=== PATIENT | female | born 1970 | race Caucasian/White ===

== ENCOUNTER 2021-02-19 10:49 | Inpatient (IN) | payer MEDICAID, OTHER ==
[2021-02-19] VITALS (13 sets, daily range): BP systolic 91–135; BP diastolic 39–71
[~2021-02-19] VITALS: Ht 167.6 cm; Wt 87.2 kg
[~2021-02-19 10:49] MED LIST: AMLO-186 PO; CA C1TAB29 PO; CITA40TA12 PO; FAMO-63 PO; LEVO125T5 PO; LOSA100T14 PO
[2021-02-19] MEDS ORDERED: ONDANSETRON PF 4 MG/2 ML VIAL. ONE (11:21)
[2021-02-19] MEDS ORDERED: ONDANSETRON PF 4 MG/2 ML VIAL. IVP ONE (11:30)
[2021-02-19] MEDS ORDERED: ASPI-630 PO (11:38)
[2021-02-19] MEDS ORDERED: ATOR80TA72 PO (11:38)
[2021-02-19] MEDS ORDERED: BUSP10TA PO (11:39)
[2021-02-19] MEDS ORDERED: FLUO40CA2 PO (11:39)
[2021-02-19] MEDS ORDERED: DOCU-109 PO (11:39)
[2021-02-19] MEDS ORDERED: QUET50TA5 PO (11:39)
[2021-02-19] MEDS ORDERED: TRAZ150T49 PO (11:39)
[2021-02-19] MEDS ORDERED: QUET200T4 PO (11:39)
[2021-02-19] MEDS ORDERED: IODIXANOL 320 MG/ML 100 ML VIAL. ONE (12:20)
[2021-02-19] MEDS ORDERED: LIDOCAINE 1% PF 2 ML VIAL. ONE (12:20)
[2021-02-19] MEDS ORDERED: NITROGLYCERIN 200 MCG/2 ML SYRINGE FOR CATH/VASC LAB. ONE (12:37)
[2021-02-19] MEDS ORDERED: MIDAZOLAM HCL/PF 2 MG/2 ML VIAL. ONE (12:37)
[2021-02-19] MEDS ORDERED: HEPARIN for IV BOLUS 10,000 UNIT/10 ML VIAL. ONE (12:37)
[2021-02-19] MEDS ORDERED: fentaNYL PF VIAL 100 MCG/2 ML VIAL ONE (12:37)
[2021-02-19] MEDS ORDERED: VERAPAMIL 5 MG/2 ML VIAL. ONE (12:37)
[2021-02-19] MEDS ORDERED: IODIXANOL 320 MG/ML 100 ML VIAL. IART ONE (14:15)
[2021-02-19] MEDS ORDERED: HEPARIN for IV BOLUS 10,000 UNIT/10 ML VIAL. IART ONE (14:15)
[2021-02-19] MEDS ORDERED: LIDOCAINE 1% PF 2 ML VIAL. INJ ONE (14:15)
[2021-02-19] MEDS ORDERED: VERAPAMIL 5 MG/2 ML VIAL. IART ONE (14:15)
[2021-02-19] MEDS ORDERED: fentaNYL PF VIAL 100 MCG/2 ML VIAL IV ONE (14:15)
[2021-02-19] MEDS ORDERED: MIDAZOLAM HCL/PF 2 MG/2 ML VIAL. IV ONE (14:15)
[2021-02-19] MEDS ORDERED: NITROGLYCERIN 200 MCG/2 ML SYRINGE FOR CATH/VASC LAB. IART ONE (14:15)
--- NOTE | 2021-02-19 18:47 | NUR ---
Per Elodia, 16CC of air was placed in TR band. This RN was able to remove 6CC of air, and the TR has no more remaining. Pulse present, No bleeding at this time.
[2021-02-19] MEDS: DOCUSATE SODIUM 100 MG CAPSULE. PO SCH (20:54)
[2021-02-19] MEDS: traZODone 50 MG TABLET. PO SCH (20:54)
[2021-02-19] MEDS: clonazePAM 0.5 MG TABLET PO PRN (20:54)
[2021-02-19] MEDS: ATORVASTATIN CALCIUM 40 MG TABLET. PO SCH (20:54)
[2021-02-19] MEDS: busPIRone 10 MG TABLET. PO SCH (20:54)
[2021-02-19] MEDS: QUEtiapine 100 MG TABLET. PO SCH (20:54)
[2021-02-20] VITALS (9 sets, daily range): BP systolic 100–125; BP diastolic 51–74
[2021-02-20 04:56] LABS: HEMATOCRIT 39.9 % (36.0-47.0); HEMOGLOBIN 13.3 g/dL (12.0-15.5); RED BLOOD COUNT 4.42 x10^6/uL (3.50-5.40); RED CELL DISTRIBUTION WIDTH 15.2 % (11.5-14.5)
[2021-02-20 05:30] LABS: ALBUMIN 3.3 g/dL (3.4-5.0); ALBUMIN/GLOBULIN RATIO 0.9 (1.0-1.7); CALCIUM 8.9 mg/dL (8.5-10.1); CREATININE 1.1 mg/dL (0.6-1.0); GFR 52.4; POTASSIUM 3.9 mmol/L (3.5-5.1); TOTAL BILIRUBIN 0.8 mg/dL (0.2-1.0)
[2021-02-20 05:32] LABS: CHOLESTEROL/HDL RATIO 2.5
[2021-02-20] MEDS: busPIRone 10 MG TABLET. PO SCH ×2 (08:44→21:01)
[2021-02-20] MEDS: DOCUSATE SODIUM 100 MG CAPSULE. PO SCH ×2 (08:44→21:01)
[2021-02-20] MEDS: ASPIRIN CHEWABLE 81 MG TABLET. PO SCH (08:44)
[2021-02-20] MEDS: FLUoxetine HCL 20 MG CAPSULE PO SCH (08:44)
[2021-02-20] MEDS: clonazePAM 0.5 MG TABLET PO PRN ×2 (11:19→21:23)
[2021-02-20] MEDS: ONDANSETRON PF 4 MG/2 ML VIAL. IVP PRN (11:20)
[2021-02-20] MEDS: oxyCODONE IR 5 MG TABLET PO PRN ×2 (11:20→21:01)
--- NOTE | 2021-02-20 11:32 | PN ---
DATE: 02/20/2021 SUBJECTIVE: The patient was transferred yesterday from where she was admitted with chest pain. She underwent cardiac catheterization and the opening of her stent to her left anterior descending artery. However, when I saw her this morning, she continued to complain of chest pain, shortness of breath, feeling dizzy and also she feels lightheaded. PHYSICAL EXAMINATION: GENERAL: When I examined her, she was resting slightly propped up in bed, in no apparent respiratory distress. She was pale, but not jaundiced or cyanosed. No thyromegaly. No jugular venous distention. No lower limb edema. VITAL SIGNS: Her heart rate was 96, blood pressure was 125/65, temperature was 98.2, respiratory rate was 18 and oxygen saturation was 98% on 2 liters of oxygen. HEAD, EYES, EARS, NOSE AND THROAT: Normocephalic, atraumatic. NECK: Supple. HEART: Showed normal first and second heart sounds. No gallop, rub or murmur. CHEST: Clear to auscultation. No crepitation or rhonchi. ABDOMEN: Distended, soft, nontender. NEUROLOGIC: She is awake, alert, seemed to be anxious, but without any obvious lateralizing sign. LABORATORY DATA: This morning showed a serum sodium 141, potassium 3.9, chloride 104, bicarbonate 29, anion gap of 8, BUN 8, creatinine was 1.1. Estimated GFR was 52 mL per minute. Her glucose was 80. Calcium was 8.9. Total bilirubin, AST, ALT normal; alkaline phosphatase slightly elevated. Total protein 7, albumin 3.3. Her serum triglycerides 73, total cholesterol 145, LDL was 71, VLDL was 15, HDL was 86 and the ratio was 2.5. ASSESSMENT: This is a 50-year-old female patient with known history of coronary artery disease with stent deployment about 10 years ago to the left anterior descending that apparently was stenosed and was reopened. She has also history of hypertension, hyperlipidemia. This morning, the patient continued to be complaining of chest pain, shortness of breath. Actually also she desaturates and complains of dizziness. PLAN: I will check her orthostatics. I also started her on Zofran and oxycodone for pain medication. We will consult the Cardiology to see her again and also get the 6-minute walk as well as physical and occupational therapy. ONEL DR: Kristina TID: [id number]
--- NOTE | 2021-02-20 13:11 | NUR ---
SS following for discharge planning. SS reviewed pt chart and discussed with pt RN. Pt is from home and is currently requiring oxygen at two liters nasal canula. Pt had heart cath on 02/19/2021. Cardiology consulted. Discharge plan is currently to home when medically ready for discharge. SS will continue to follow for discharge planning.
--- NOTE | 2021-02-20 13:16 | HP ---
ADMIT DATE: 02/19/2021 HISTORY OF PRESENT ILLNESS: The patient is a 50-year-old female patient who was seen at the Emergency Room of [facility] with a complaint of chest pain, started the night before admission while she was watching TV. She reports it was not bad at that time and nothing known to have made it better or worse. She was able to sleep overnight and when she woke up in the morning, she felt it with increasing severity. It went on throughout the entirety of the day until she finally got concerned and called EMS for transfer to [facility] Emergency Room. She describes the pain as a pressure, substernal with radiation to the left shoulder. States it feels like pressure versus pain and described it as someone sitting on me. Admits, she has significant cardiac history. She takes 1 baby aspirin daily in addition to high intensity statins. She is followed as an outpatient in [facility] Cardiology team. She has history of heart attack with 1 stent to her left anterior descending placed 9 years ago and is concerned because pressure today on the day of admission feels like similar to her previous history, has not had any significant provocative cardiac testing or intervention since the stent was placed 9 years ago. The patient is a former smoker, stopped last March. Otherwise, denies any alcohol or recreational drug use. She has been vaccinated against COVID-19, only other associated symptoms include diarrhea with looser stools than normal first experienced before she arrives to the Emergency Room. Denied any fever, recent travel or sick contact. She stated she has been homebound and fearful of getting COVID-19 in the community. She was extensively investigated in the Emergency Room and has had an EKG, which showed that she was in sinus rhythm at her heart rate of 84 beats per minute, unremarkable interval left axis deviation with no STEMI. Her chest x-ray showed no focal airspace consolidation or edema. CT scan of the chest with contrast showed that the visualized portion of the thyroid is unremarkable. No enlarged mediastinal lymph nodes are identified. Heart size is normal. No pericardial effusion. Thoracic aorta is normal in size and course and caliber. 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 No pulmonary embolus identified within the main lobar or segmental pulmonary arteries. Airways are patent braeden opacities that the dependent portion of the lungs likely represents atelectasis, no pleural effusion or thickening. Visualized upper abdomen is unremarkable. She has had 3 sets of cardiac enzymes showed troponin to be less than 0.017. However, the patient was seen by cash surrender calculator and it was felt that the patient's chest pain is consistent with myocardial ischemia and a decision was made to transfer her to [facility] for cardiac catheterization. PAST MEDICAL HISTORY: Significant for hypertension; hyperlipidemia; coronary artery disease, status post stent deployment about 9 years ago. She has also gastroesophageal reflux disease, anxiety and depression. PAST SURGICAL HISTORY: Significant for cholecystectomy, left heart catheterization with stent deployment. FAMILY HISTORY: Positive for diabetes, heart disease and hypertension. SOCIAL HISTORY: She lives with her family. She quit smoking about a year ago. Does not drink alcohol or recreational drugs. REVIEW OF SYSTEMS: As per history of present illness. MEDICATIONS: She is currently on the following medications: She is on aspirin 81 mg once a day, duloxetine 80 mg once a day and trazodone 150 mg at bedtime. She is on quetiapine fumarate 50 mg twice a day, quetiapine fumarate 200 mg at bedtime, buspirone 20 mg twice a day, docusate sodium 100 mg daily, Protonix 40 mg once a day, atorvastatin 80 mg at bedtime. PHYSICAL EXAMINATION: GENERAL: On arrival to the Emergency Room, the patient looked well and was clearly in no apparent respiratory distress. There was no pallor, jaundice, cyanosis or thyromegaly. No jugular venous distention. No limb edema. VITAL SIGNS: Her heart rate was 72, blood pressure 110/72, temperature was 97.8, respiratory rate was 16 and oxygen saturation was 97%. HEAD, EYES, EARS, NOSE, AND THROAT: Showed normocephalic, atraumatic. NECK: Supple. HEART: Showed normal first and second heart sounds, no gallop, rub or murmur. CHEST: Clear to auscultation. No crepitation or rhonchi. ABDOMEN: Distended, soft, nontender. NEUROLOGIC: She is grossly intact. LABORATORY WORK: Done prior to arrival to the hospital and showed a white cell count of 6400, hemoglobin 13.6, hematocrit 40, MCV 91, and platelet count of 171,000 with normal manual differential. Serum sodium was 138, potassium 4.2, chloride 103, bicarbonate 26, anion gap of 9, BUN 16, creatinine 1.1. Estimated GFR was 52 mL per minute. Her glucose was 92.7, calcium was 9.4. Total bilirubin, AST, ALT were normal. Alkaline phosphatase slightly elevated at 238. CK was 110, beta natriuretic peptide was only 53. Total protein was 7.4, albumin was 3.8. She has 3 sets of cardiac enzymes that were all less than 0.017. ASSESSMENT: 1. Coronary artery disease, status post stent deployment. 2. Chest pain. 3. Hypertension. 4. Hyperlipidemia. PLAN: The patient was admitted to [facility] for cardiac catheterization to consult the Cardiology team for cardiac catheterization as recommended by the cash surrender calculator. BALWINDER DR: Kristina TID: [id number]
--- NOTE | 2021-02-20 13:20 | PDOC ---
CARDIO Progress Notes Date and Time Date of Service 02/20/2021 Time of Evaluation 1300 Subjective Subjective: No Chest Pain, No Palpitations Vitals Vitals Vital Signs Date Time Temp Pulse Resp B/P (MAP) Pulse Ox O2 Delivery O2 Flow Rate FiO2 02/20/21 11:50 18 Nasal Cannula 2.0 02/20/21 11:20 93 02/20/21 10:24 98.2 96 125/65 (85) 98.2 Weight Weight [ ] Input and Output Intake and Output Intake and Output 02/20/21 07:00 Intake Total 750 ml Balance 750 ml Intake Oral 750 ml Laboratory Labs Laboratory Tests Test 02/20/21 04:30 White Blood Count 5.0 x10^3/uL (4.0-11.0) Red Blood Count 4.42 x10^6/uL (3.50-5.40) Hemoglobin 13.3 g/dL (12.0-15.5) Hematocrit 39.9 % (36.0-47.0) Mean Corpuscular Volume 90 fL (79-100) Mean Corpuscular Hemoglobin 30 pg (25-35) Mean Corpuscular Hemoglobin Concent 33 g/dL (31-37) Red Cell Distribution Width 15.2 % (11.5-14.5) Platelet Count 166 x10^3/uL (140-400) Sodium Level 141 mmol/L (136-145) Potassium Level 3.9 mmol/L (3.5-5.1) Chloride Level 104 mmol/L (98-107) Carbon Dioxide Level 29 mmol/L (21-32) Anion Gap 8 (6-14) Blood Urea Nitrogen 8 mg/dL (7-20) Creatinine 1.1 mg/dL (0.6-1.0) Estimated GFR (Cockcroft-Gault) 52.4 BUN/Creatinine Ratio 7 (6-20) Glucose Level 80 mg/dL (70-99) Calcium Level 8.9 mg/dL (8.5-10.1) Total Bilirubin 0.8 mg/dL (0.2-1.0) Aspartate Amino Transf (AST/SGOT) 22 U/L (15-37) Alanine Aminotransferase (ALT/SGPT) 35 U/L (14-59) Alkaline Phosphatase 206 U/L (46-116) Troponin I Quantitative < 0.017 ng/mL (0.000-0.055) Total Protein 7.0 g/dL (6.4-8.2) Albumin 3.3 g/dL (3.4-5.0) Albumin/Globulin Ratio 0.9 (1.0-1.7) Triglycerides Level 73 mg/dL (0-150) Cholesterol Level 145 mg/dL (0-200) LDL Cholesterol, Calculated 71 mg/dL (0-100) VLDL Cholesterol, Calculated 15 mg/dL (0-40) Non-HDL Cholesterol Calculated 86 mg/dL (0-129) HDL Cholesterol 59 mg/dL (40-60) Cholesterol/HDL Ratio 2.5 Physical Exam HEENT: Neck Supple W Full Motion Chest: Symmetric LUNGS: Clear to Auscultation Heart: RRR (SR) Abdomen: Soft N/T Extremities: No Edema, No Calf Tenderness Neurology: alert, oriented, follow commands Assessment Assessment 1. Chest pain: possibly from anxiety. LHC revealed no significant lesion or intervention 2. CAD s/p PCI/stent in 2017. Follows with [facility] cardiology, Dr. Tristan. 3. Hypertension; controlled 4. Hyperlipidemia; statin 5. Anxiety, depression 6. Hypoxia; prior CTA with no significant changes. Recommendation 1. Continue secondary prevention measures 2. Continues to need O2. PCXR. If no LV gram then will consider TTE. 6 min walk 3. Supportive care Justicifation of Admission Dx: Justifications for Admission: Justification of Admission Dx: No CORTEZ DAVIES APRN Feb 20, 2021 13:20
--- NOTE | 2021-02-20 13:54 | RAD ---
EXAM: XR CHEST 1V 02/20/2021 11:40 AM CLINICAL INDICATION: Shortness of breath COMPARISON: None TECHNIQUE: AP upright view of the chest FINDINGS: The heart is normal in size. Lungs are hyperexpanded. There is no consolidation, pleural e ffusion, or pneumothorax. No acute osseous abnormality. IMPRESSION: No acute cardiopulmonary abnormality. Electronically signed by: Noemy Elliott MD (02/20/2021 1:52 PM) [id number]
[2021-02-20] MEDS: QUEtiapine 25 MG TABLET. PO SCH (14:52)
--- NOTE | 2021-02-20 17:04 | CARD ---
MR#: [id number] Date of Study: 02/19/2021 Ordering Physician: SANTA MCCLAIN, Referring Physician: SANTA MCCLAIN, Tech: RT Shania(R) APPROVED REPORT Technologist: Alise Ward RT(R) Nurse: Bharti Elizalde RN Procedure(s) performed: MODERATE SEDATION TIME: 45 MINUTES FLUORO TIME: 5.1 MIN DOSE: 29.1 GYCM2 CONTRAST: 65CC VISI LHC, Coronary angiography [facility] Clinical Frailty Scale [facility] Clinical Frailty Scale: Moderately Frail Heart Failure Heart Failure: No CASE TECHNIQUE IV conscious sedation was used throughout procedure with appropriate monitoring and was performed in the presence of a registered nurse who was an independent trained observer other than the physician p erforming the procedure. During this case, Fluoroscopy and low osmolar contrast were used for imaging . Specimen(s) Removed: N/A Estimated Blood loss: 15 cc's. PROCEDURE NARRATIVE Clinical information: 50-year-old woman presents to the hospital in the setting of unstable angina and a prior known histor y of coronary artery disease. Informed consent: Written informed consent was obtained from the patient after adequate discussion of the risks and ruiz efits of the procedure. Procedure details: ACCESS: The right wrist was prepped and draped in usual sterile fashion. Under 1% lidocaine local anesthesia a 6 Russian Terumo sheath was placed in the right radial artery via the Seldinger technique via ultra sound guidance. DIAGNOSTIC ANGIOGRAPHY: Right and left coronary arteries were engaged with a 6 Russian JR4 and JL 3.5 catheters. Diagnostic a ngiography in multiple views were obtained. Next, a 6 Russian JR4 catheter was placed in the left jair tricle and a LVEDP was measured. A pullback was performed. All catheters were exchanged over J-tip guidewire. FINDINGS: ======= Aorta: 110/80 LVEDP: 15 mmHg Left ventriculogram: Deferred Coronary angiography: LM: Large caliber vessel with normal angiographic appearance LAD: Moderate caliber vessel with a proximal 40-50% stenosis. The mid to distal LAD is diminutive in nature. D1: Small caliber vessel with normal angiographic appearance LCX: Moderate caliber non-dominant vessel with a patent mid stent. OM1: Small caliber vessel with normal angiographic appearance RCA: Large caliber dominant vessel with a proximal to mid 30% stenosis RPDA: Moderate caliber vessel with mild luminal irregularities. The RPDA and RPL extend to the apex. CLOSURE: At case completion the right radial sheath was removed and a Terumo radial band was applied with 11 m L of air. Hemostasis was achieved. COMPLICATIONS: No acute complications noted Conclusion 1. Normal left-sided filling pressures 2. Two-vessel coronary artery disease. 3. Patent stent in the left circumflex. Recommendations Aggressive Medical Therapy Signed by : Santa Mcclain, Electronically Approved : 02/20/2021 17:03:45
--- NOTE | 2021-02-20 17:20 | CARD ---
MR#: [id number] Date of Study: 02/20/2021 Ordering Physician: CORTEZ DAVIES, Referring Physician: CORTEZ DAVIES Tech: Ramana Tamayo [facility] APPROVED REPORT EXAM: Two-dimensional and M-mode echocardiogram with Doppler and color Doppler. Other Information Quality : AverageHR: 83bpm Rhythm : NSR INDICATION CAD Chest Pain RISK FACTORS Hypertension Hyperlipidemia 2D DIMENSIONS Left Atrium(2D)2.5 (1.6-4.0cm)IVSd0.9 (0.7-1.1cm) Aortic Root(2D)2.9 (2.0-3.7cm)LVDd3.6 (3.9-5.9cm) LVOT Diameter1.8 (1.8-2.4cm)PWd0.9 (0.7-1.1cm) LVDs2.4 (2.5-4.0cm)FS (%) 32.4 % SV33.3 mlLVEF(%)61.7 (>50%) Aortic Valve AoV Peak Tyler.140.5cm/sAoV VTI24.4cm AO Peak GR.7.9mmHgLVOT Peak Tyler.103.4cm/s AO Mean GR.4mmHgAVA (VMAX)1.95cm2 Mitral Valve MV E Hmiozfow94.0cm/sMV E Peak Gr.4mmHg MV DECEL [id number] A Zcsdycbs67.7cm/s MV E Mean Gr.2mmHgE/A Ratio0.9 Pulmonary Valve PV Peak Adkcgduj064.3cm/s Tricuspid Valve TR P. Sjsklvlz828zw/sTR Peak Gr.20mmHg Pulmonary Vein S1 Zwwgwfdk17.3cm/sD2 Ihsfyuce76.2cm/s LEFT VENTRICLE The left ventricle is normal size. There is normal left ventricular wall thickness. The left ventricu lar systolic function is normal and the ejection fraction is within normal range. EF 55% There is nor mal LV segmental wall motion. Transmitral Doppler flow pattern is Grade I-abnormal relaxation pattern . No left ventricle thrombus noted on this study. There is no ventricular septal defect visualized. T here is no left ventricular aneurysm. There is no mass noted in the left ventricle. RIGHT VENTRICLE The right ventricle is normal size. There is normal right ventricular wall thickness. The right ventr icular systolic function is normal. ATRIA The left atrium size is normal. The right atrium size is normal. The interatrial septum is intact wit h no evidence for an atrial septal defect or patent foramen ovale as noted on 2-D or Doppler imaging. AORTIC VALVE The aortic valve is trileaflet. Doppler and Color Flow revealed no significant aortic regurgitation. There is no significant aortic valvular stenosis. There is no aortic valvular vegetation. MITRAL VALVE The mitral valve is normal in structure and function. There is no evidence of mitral valve prolapse. There is no mitral valve stenosis. Doppler and Color Flow revealed no mitral valve regurgitation note d. TRICUSPID VALVE The tricuspid valve is normal in structure and function. Doppler and Color Flow revealed trace tricus pid regurgitation. There is no tricuspid valve prolapse or vegetation. There is no tricuspid valve st enosis. PULMONIC VALVE Doppler and Color Flow revealed trivial pulmonic regurgitation There is no pulmonic valvular stenosis . GREAT VESSELS The aortic root is normal in size. The ascending aorta is normal in size. The IVC is normal in size a nd collapses >50% with inspiration. PERICARDIAL EFFUSION There is no pleural effusion. There is no evidence of significant pericardial effusion. Critical Notification Critical Value: No <Conclusion> The left ventricular systolic function is normal and the ejection fraction is within normal range. EF 55% There is normal LV segmental wall motion. Signed by : Rustam Mcclain, Electronically Approved : 02/20/2021 17:19:53
[2021-02-20] MEDS: QUEtiapine 100 MG TABLET. PO SCH (21:00)
[2021-02-20] MEDS: traZODone 50 MG TABLET. PO SCH (21:00)
[2021-02-20] MEDS: ATORVASTATIN CALCIUM 40 MG TABLET. PO SCH (21:23)
[2021-02-21] VITALS (7 sets, daily range): BP systolic 84–113; BP diastolic 43–64
[2021-02-21] MEDS: ASPIRIN CHEWABLE 81 MG TABLET. PO SCH (08:56)
[2021-02-21] MEDS: busPIRone 10 MG TABLET. PO SCH ×2 (08:56→19:26)
[2021-02-21] MEDS: QUEtiapine 25 MG TABLET. PO SCH ×2 (08:57→14:45)
[2021-02-21] MEDS: clonazePAM 0.5 MG TABLET PO PRN ×2 (08:57→19:26)
[2021-02-21] MEDS: FLUoxetine HCL 20 MG CAPSULE PO SCH (08:57)
[2021-02-21] MEDS: oxyCODONE IR 5 MG TABLET PO PRN ×2 (08:57→19:27)
[2021-02-21] MEDS: DOCUSATE SODIUM 100 MG CAPSULE. PO SCH ×2 (09:00→21:00)
--- NOTE | 2021-02-21 12:42 | PN ---
DATE: 02/21/2021 SUBJECTIVE: The patient is resting slightly propped up in her recliner, continued to complain of being weak and fatigued and short of breath. She underwent cardiac catheterization, which basically showed that she has normal left ventricular filling pressure, 2-vessel coronary artery disease, patent stent to the left circumflex. While at [facility], she had had a chest x-ray which basically showed no focal airspace consolidation or edema and her CT angio of the chest showed that the heart size is normal with no pericardial effusion, thoracic aorta is normal size, normal course and caliber. There is an aberrant right subclavian artery with a retroesophageal course, normal pulmonary embolism identified within the main lobar or segmental pulmonary arteries. The airways are patent. Strandy opacities in the dependent portion of the lungs, likely representing atelectasis. No suspicious lung nodules identified. No pleural effusion or thickening. Visualized upper abdomen is unremarkable. No suspicious osseous lesions or acute fracture. PHYSICAL EXAMINATION: GENERAL: When I examined her today, she was resting slightly propped up in bed, in no apparent distress. There was no pallor, jaundice, cyanosis or thyromegaly. No jugular venous distention. No lower limb edema. VITAL SIGNS: Her heart rate was 86, blood pressure was 113/64, temperature was 96.8, respiratory rate was 16 and oxygen saturation was 92% on 2 liters of oxygen. HEAD, EYES, EARS, NOSE, AND THROAT: Normocephalic, atraumatic. NECK: Supple. HEART: Showed normal first and second heart sounds, no gallop or murmur. CHEST: Shows central trachea, equal bilateral chest expansion, air entry, vesicular breath sounds. I could not really appreciate any crepitation or rhonchi. ABDOMEN: Distended, soft, nontender. NEUROLOGIC: She is awake, alert, but without any obvious lateralizing sign. LABORATORY DATA: Her lab work as of yesterday showed a normal white cell count of 5000, hemoglobin 13.3, hematocrit 39.9, MCV 90 and platelet count of 166,000. Her chemistry showed a serum sodium 141, potassium 3.9, chloride 104, bicarbonate 29, anion gap of 8, BUN 8, creatinine 1.1. Estimated GFR was 52 mL per minute. Her glucose was 80. Calcium was 8.9. Total bilirubin, AST, ALT were normal. Alkaline phosphatase slightly elevated. Her total protein 7, albumin was 3.3. Serum triglyceride was 73, cholesterol 145, LDL cholesterol 71, VLDL was 15, HDL cholesterol was 59, ratio was 2.5. ASSESSMENT: 1. Chest pain with no obvious reason for that. Her CT angio of the chest was unremarkable and left heart catheterization revealed no significant lesion and/or required intervention. 2. Coronary artery disease status post percutaneous coronary intervention with stent deployment in 2017. She normally follows with her public health nutritionist at [facility]. 3. Hypertension, seems to be well controlled. 4. Hyperlipidemia, on statin. 5. Anxiety and depression. 6. Hypoxemia; however, her CT angio of the chest was unremarkable. PLAN: To continue with oxygen supplementation. She was seen by the physical therapist and apparently they recommended group home facility something that obviously cannot be arranged over the weekend, so we will wait for Tuesday before we can look into this. COREY DR: Kristina TID: [id number]
[2021-02-21] MEDS: ENOXAPARIN 40 MG/0.4 ML SYRINGE. SQ SCH (14:45)
--- NOTE | 2021-02-21 15:37 | PDOC ---
PROGRESS NOTES Date of Service DATE: 02/21/21 TIME: 15:35 Subjective Subjective Patient seen and examined Objective Objective Vital Signs Date Time Temp Pulse Resp B/P (MAP) Pulse Ox O2 Delivery O2 Flow Rate FiO2 02/21/21 15:00 97.6 83 16 103/52 (69) 95 Nasal Cannula 2.0 97.6 Intake and Output 02/21/21 07:00 Intake Total 1870 ml Balance 1870 ml Intake Oral 1870 ml # Voids 2 Physical Exam Abdomen: Normal bowel sounds Heart: Regular rate General: mild distress Lungs: Other (Minimally decreased breath sounds) Assessment Assessment Chest pain: Significantly improved today. Patient heart catheterization showed no significant lesions and required no interventions. Echocardiogram shows intact LV systolic function. We will continue on present treatment. CAD s/p PCI/stent in 2017. Follows with [facility] cardiology, Dr. Tristan. Hypertension; controlled Hyperlipidemia; statin Anxiety, depression. Appears improved today. Hypoxia; prior CTA with no significant changes. Comment Review of Relevant I have reviewed the following items missy (where applicable) has been applied. Labs Laboratory Tests Test 02/20/21 04:30 White Blood Count 5.0 x10^3/uL (4.0-11.0) Red Blood Count 4.42 x10^6/uL (3.50-5.40) Hemoglobin 13.3 g/dL (12.0-15.5) Hematocrit 39.9 % (36.0-47.0) Mean Corpuscular Volume 90 fL (79-100) Mean Corpuscular Hemoglobin 30 pg (25-35) Mean Corpuscular Hemoglobin Concent 33 g/dL (31-37) Red Cell Distribution Width 15.2 % (11.5-14.5) Platelet Count 166 x10^3/uL (140-400) Sodium Level 141 mmol/L (136-145) Potassium Level 3.9 mmol/L (3.5-5.1) Chloride Level 104 mmol/L (98-107) Carbon Dioxide Level 29 mmol/L (21-32) Anion Gap 8 (6-14) Blood Urea Nitrogen 8 mg/dL (7-20) Creatinine 1.1 mg/dL (0.6-1.0) Estimated GFR (Cockcroft-Gault) 52.4 BUN/Creatinine Ratio 7 (6-20) Glucose Level 80 mg/dL (70-99) Calcium Level 8.9 mg/dL (8.5-10.1) Total Bilirubin 0.8 mg/dL (0.2-1.0) Aspartate Amino Transf (AST/SGOT) 22 U/L (15-37) Alanine Aminotransferase (ALT/SGPT) 35 U/L (14-59) Alkaline Phosphatase 206 U/L (46-116) Troponin I Quantitative < 0.017 ng/mL (0.000-0.055) Total Protein 7.0 g/dL (6.4-8.2) Albumin 3.3 g/dL (3.4-5.0) Albumin/Globulin Ratio 0.9 (1.0-1.7) Triglycerides Level 73 mg/dL (0-150) Cholesterol Level 145 mg/dL (0-200) LDL Cholesterol, Calculated 71 mg/dL (0-100) VLDL Cholesterol, Calculated 15 mg/dL (0-40) Non-HDL Cholesterol Calculated 86 mg/dL (0-129) HDL Cholesterol 59 mg/dL (40-60) Cholesterol/HDL Ratio 2.5 Medications Current Medications Ondansetron HCl (Zofran) 4 mg 1X ONCE IVP ; Start 02/19/21 at 11:30; Stop 02/19/21 at 11:31; Status DC Ondansetron HCl (Zofran) 4 mg STK-MED ONCE .ROUTE ; Start 02/19/21 at 11:21; Stop 02/19/21 at 11:21; Status DC Lidocaine HCl (Xylocaine-Mpf 1% 2ml Vial) 2 ml STK-MED ONCE .ROUTE ; Start 02/19/21 at 12:20; Stop 02/19/21 at 12:20; Status DC Iodixanol (Visipaque 320) 100 ml STK-MED ONCE .ROUTE ; Start 02/19/21 at 12:20; Stop 02/19/21 at 12:20; Status DC Heparin Sodium/ Sodium Chloride 1,000 ml @ As Directed STK-MED ONCE .ROUTE ; Start 02/19/21 at 12:20; Stop 02/19/21 at 12:20; Status DC Fentanyl Citrate (Fentanyl 2ml Vial) 100 mcg STK-MED ONCE .ROUTE ; Start 02/19/21 at 12:37; Stop 02/19/21 at 12:37; Status DC Midazolam HCl (Versed) 2 mg STK-MED ONCE .ROUTE ; Start 02/19/21 at 12:37; Stop 02/19/21 at 12:37; Status DC Heparin Sodium (Porcine) (Heparin Sodium) 10,000 unit STK-MED ONCE .ROUTE ; Start 02/19/21 at 12:37; Stop 02/19/21 at 12:37; Status DC Verapamil HCl (Verapamil) 5 mg STK-MED ONCE .ROUTE ; Start 02/19/21 at 12:37; Stop 02/19/21 at 12:37; Status DC Nitroglycerin (Nitroglycerin) 200 mcg STK-MED ONCE .ROUTE ; Start 02/19/21 at 12:37; Stop 02/19/21 at 12:37; Status DC Nitroglycerin (Nitroglycerin) 200 mcg 1X ONCE IART Last administered on 02/19/21at 14:14; Start 02/19/21 at 14:15; Stop 02/19/21 at 14:16; Status DC Verapamil HCl (Verapamil) 2.5 mg 1X ONCE IART Last administered on 02/19/21at 14:14; Start 02/19/21 at 14:15; Stop 02/19/21 at 14:16; Status DC Heparin Sodium (Porcine) (Heparin Sodium) 2,500 unit 1X ONCE IART Last administered on 02/19/21at 14:15; Start 02/19/21 at 14:15; Stop 02/19/21 at 14:16; Status DC Heparin Sodium/ Sodium Chloride (HEPARIN for ARTERIAL LINE FLUSH) 1,000 unit 1X ONCE IART Last administered on 02/19/21at 14:13; Start 02/19/21 at 14:15; Stop 02/19/21 at 14:16; Status DC Midazolam HCl (Versed) 2 mg 1X ONCE IV Last administered on 02/19/21at 14:14; Start 02/19/21 at 14:15; Stop 02/19/21 at 14:16; Status DC Fentanyl Citrate (Fentanyl 2ml Vial) 100 mcg 1X ONCE IV Last administered on 02/19/21at 14:15; Start 02/19/21 at 14:15; Stop 02/19/21 at 14:16; Status DC Iodixanol (Visipaque 320) 65 ml 1X ONCE IART Last administered on 02/19/21at 14:13; Start 02/19/21 at 14:15; Stop 02/19/21 at 14:16; Status DC Lidocaine HCl (Xylocaine-Mpf 1% 2ml Vial) 2 ml 1X ONCE INJ Last administered on 02/19/21at 14:13; Start 02/19/21 at 14:15; Stop 02/19/21 at 14:16; Status DC Aspirin (Aspirin Chewable) 81 mg DAILY PO Last administered on 02/21/21at 08:56; Start 02/20/21 at 09:00 Buspirone HCl (Buspar) 20 mg BID PO Last administered on 02/21/21at 08:56; Start 02/19/21 at 21:00 Docusate Sodium (Colace) 100 mg BID PO ; Start 02/19/21 at 21:00 Atorvastatin Calcium (Lipitor) 80 mg QHS PO Last administered on 02/20/21at 21:23; Start 02/19/21 at 21:00 Fluoxetine HCl (PROzac) 80 mg DAILY PO Last administered on 02/21/21at 08:57; Start 02/20/21 at 09:00 Quetiapine Fumarate (SEROquel) 50 mg BID92 PO Last administered on 02/21/21at 14:45; Start 02/20/21 at 15:00 Quetiapine Fumarate (SEROquel) 200 mg QHS PO Last administered on 02/20/21at 21:00; Start 02/19/21 at 21:00 Trazodone HCl (Desyrel) 150 mg QHS PO Last administered on 02/20/21at 21:00; Start 02/19/21 at 21:00 Clonazepam (KlonoPIN) 1 mg PRN Q6HRS PRN PO ANXIETY / AGITATION Last administered on 02/21/21at 08:57; Start 02/19/21 at 19:45 Ondansetron HCl (Zofran) 4 mg PRN Q6HRS PRN IVP NAUSEA/VOMITING Last administered on 02/20/21at 11:20; Start 02/20/21 at 11:15 Oxycodone HCl (Roxicodone) 5 mg PRN Q6HRS PRN PO MODERATE TO SEVERE PAIN Last administered on 02/21/21at 08:57; Start 02/20/21 at 11:15 Enoxaparin Sodium (Lovenox 40mg Syringe) 40 mg Q24H SQ Last administered on 02/21/21at 14:45; Start 02/21/21 at 15:00 Active Scripts Active Reported Trazodone Hcl 150 Mg Tablet 1 Tab PO QHS 30 Days Seroquel (Quetiapine Fumarate) 200 Mg Tablet 1 Tab PO QHS Seroquel (Quetiapine Fumarate) 50 Mg Tablet 50 Mg PO BID Fluoxetine Hcl 40 Mg Capsule 80 Mg PO DAILY Colace (Docusate Sodium) 100 Mg Capsule 1 Cap PO BID 30 Days Buspirone Hcl 10 Mg Tablet 20 Mg PO BID Atorvastatin Calcium 80 Mg Tablet 80 Mg PO QHS Aspirin 81 Mg Tab.chew 1 Tab PO DAILY Vitals/I & O Vital Sign - Last 24 Hours 02/20/21 02/20/21 02/20/21 02/20/21 19:25 19:50 21:01 21:31 Temp 97.5 97.5 Pulse 78 Resp 21 B/P (MAP) 115/53 (73) Pulse Ox 96 96 96 O2 Delivery Nasal Cannula Nasal Cannula Nasal Cannula Nasal Cannula O2 Flow Rate 2.0 2.0 2.0 2.0 02/20/21 02/21/21 02/21/21 02/21/21 23:45 03:15 07:00 08:00 Temp 97.6 97.8 96.8 97.6 97.8 96.8 Pulse 81 77 86 Resp 20 18 16 B/P (MAP) 104/51 (68) 105/58 (74) 113/64 (80) Pulse Ox 94 96 92 O2 Delivery Nasal Cannula Nasal Cannula Nasal Cannula Nasal Cannula O2 Flow Rate 2.0 2.0 2.0 2.0 02/21/21 02/21/21 02/21/21 02/21/21 08:57 09:27 11:00 15:00 Temp 97.5 97.6 97.5 97.6 Pulse 83 83 Resp 16 18 16 16 B/P (MAP) 106/48 (67) 103/52 (69) Pulse Ox 92 98 95 O2 Delivery Nasal Cannula Nasal Cannula Nasal Cannula Nasal Cannula O2 Flow Rate 2.0 2.0 2.0 Intake and Output 02/20/21 02/20/21 02/21/21 15:00 23:00 07:00 Intake Total 300 ml 850 ml 720 ml Balance 300 ml 850 ml 720 ml Justifications for Admission Other Justification WESLEY IYER MD Feb 21, 2021 15:37
[2021-02-21] MEDS: QUEtiapine 100 MG TABLET. PO SCH (19:26)
[2021-02-21] MEDS: traZODone 50 MG TABLET. PO SCH (19:27)
[2021-02-21] MEDS: ATORVASTATIN CALCIUM 40 MG TABLET. PO SCH (19:27)
[2021-02-22 03:15] VITALS: BP 120/52
[2021-02-22 06:04] VITALS: BP 100/53
[2021-02-22] MEDS: FLUoxetine HCL 20 MG CAPSULE PO SCH (08:38)
[2021-02-22] MEDS: QUEtiapine 25 MG TABLET. PO SCH ×2 (08:39→14:39)
[2021-02-22] MEDS: busPIRone 10 MG TABLET. PO SCH ×2 (08:39→20:01)
[2021-02-22] MEDS: clonazePAM 0.5 MG TABLET PO PRN (08:41)
[2021-02-22] MEDS: ASPIRIN CHEWABLE 81 MG TABLET. PO SCH (08:41)
[2021-02-22] MEDS: DOCUSATE SODIUM 100 MG CAPSULE. PO SCH ×2 (09:00→20:01)
--- NOTE | 2021-02-22 10:24 | PN ---
DATE: 02/22/2021 SUBJECTIVE: The patient is sitting slightly propped up in bed, in no apparent respiratory distress. She continued to complain of generalized weakness, feeling dizzy, continued to require 2 liters of oxygen. Denied any chest pain today. PHYSICAL EXAMINATION: GENERAL: When I examined her, she was pale, but no jaundice, cyanosis. No lymphadenopathy, no thyromegaly, no jugular venous distention, no lower limb edema. VITAL SIGNS: Her heart rate was 85, blood pressure was 100/53, her temperature was 97.4, respiratory rate was 18 and oxygen saturation was 94% on 2 liters of oxygen. HEAD, EYES, EARS, NOSE, AND THROAT: Showed normocephalic, atraumatic. NECK: Supple. HEART: Showed normal first and second heart sounds. No gallop, rub or murmur. CHEST: Clear to auscultation. No crepitation or rhonchi. ABDOMEN: Distended, soft, nontender. NEUROLOGIC: She was grossly intact. LABORATORY WORK: She has no lab work done. Her chest x-ray showed the heart is normal in size. Lungs are hyperexpanded. There are no consolidation, pleural effusion, or pneumothorax, no acute osseous abnormality. ASSESSMENT: 1. In summary, this is a 50-year-old who was admitted with chest pain with no obvious reason for that, her CT angio of the chest was unremarkable and her left heart catheterization revealed no significant lesion and required intervention. 2. Coronary artery disease, status post percutaneous coronary intervention with stent deployment in 2017. 3. Hypertension, seems to be well controlled. 4. Hyperlipidemia. 5. Anxiety and depression. 6. Hypoxemia. However, CT angio of the chest was unremarkable. She did 6-minute walk and it showed that her oxygen saturation was 87% on room air at rest. She required 3 liters of oxygen by nasal cannula to keep her oxygen saturation above 90. She required 2 liters by nasal cannula to maintain her oxygen saturation between 94-95% with exertion and respiratory therapist recommended oxygen at 2 liters by nasal cannula at rest and with exertion. PLAN: To continue obviously with oxygen supplementation. Continue with physical and occupational therapy. We will [facility] if she qualifies tomorrow after consulting the clinical social work aide or social work case manager. MELIDA DR: Kristina TID: [id number]
[2021-02-22 11:00] VITALS: BP 98/50
--- NOTE | 2021-02-22 14:23 | PDOC ---
PROGRESS NOTES Date of Service DATE: 02/22/21 TIME: 14:21 Subjective Subjective Patient seen and examined Objective Objective Vital Signs Date Time Temp Pulse Resp B/P (MAP) Pulse Ox O2 Delivery O2 Flow Rate FiO2 02/22/21 08:10 Nasal Cannula 2.0 02/22/21 06:04 97.4 85 18 100/53 (69) 94 97.4 Intake and Output 02/22/21 07:00 Intake Total 900 ml Balance 900 ml Intake Oral 900 ml # Voids 2 Physical Exam Abdomen: Normal bowel sounds Heart: Regular rate General: No acute distress Lungs: Clear to auscultation Assessment Assessment Chest pain: Continues to improve. Patient heart catheterization showed no significant lesions and required no interventions. Echocardiogram shows intact LV systolic function. We will continue on present treatment. Increase activity. CAD s/p PCI/stent in 2017. Follows with [facility] cardiology, Dr. Tristan. Hypertension; controlled Hyperlipidemia; statin Anxiety, depression. Appears improved today. Hypoxia; prior CTA with no significant changes. Comment Review of Relevant I have reviewed the following items missy (where applicable) has been applied. Medications Current Medications Ondansetron HCl (Zofran) 4 mg 1X ONCE IVP ; Start 02/19/21 at 11:30; Stop 02/19/21 at 11:31; Status DC Ondansetron HCl (Zofran) 4 mg STK-MED ONCE .ROUTE ; Start 02/19/21 at 11:21; Stop 02/19/21 at 11:21; Status DC Lidocaine HCl (Xylocaine-Mpf 1% 2ml Vial) 2 ml STK-MED ONCE .ROUTE ; Start 02/19/21 at 12:20; Stop 02/19/21 at 12:20; Status DC Iodixanol (Visipaque 320) 100 ml STK-MED ONCE .ROUTE ; Start 02/19/21 at 12:20; Stop 02/19/21 at 12:20; Status DC Heparin Sodium/ Sodium Chloride 1,000 ml @ As Directed STK-MED ONCE .ROUTE ; Start 02/19/21 at 12:20; Stop 02/19/21 at 12:20; Status DC Fentanyl Citrate (Fentanyl 2ml Vial) 100 mcg STK-MED ONCE .ROUTE ; Start 02/19/21 at 12:37; Stop 02/19/21 at 12:37; Status DC Midazolam HCl (Versed) 2 mg STK-MED ONCE .ROUTE ; Start 02/19/21 at 12:37; Stop 02/19/21 at 12:37; Status DC Heparin Sodium (Porcine) (Heparin Sodium) 10,000 unit STK-MED ONCE .ROUTE ; Start 02/19/21 at 12:37; Stop 02/19/21 at 12:37; Status DC Verapamil HCl (Verapamil) 5 mg STK-MED ONCE .ROUTE ; Start 02/19/21 at 12:37; Stop 02/19/21 at 12:37; Status DC Nitroglycerin (Nitroglycerin) 200 mcg STK-MED ONCE .ROUTE ; Start 02/19/21 at 12:37; Stop 02/19/21 at 12:37; Status DC Nitroglycerin (Nitroglycerin) 200 mcg 1X ONCE IART Last administered on 02/19/21at 14:14; Start 02/19/21 at 14:15; Stop 02/19/21 at 14:16; Status DC Verapamil HCl (Verapamil) 2.5 mg 1X ONCE IART Last administered on 02/19/21at 14:14; Start 02/19/21 at 14:15; Stop 02/19/21 at 14:16; Status DC Heparin Sodium (Porcine) (Heparin Sodium) 2,500 unit 1X ONCE IART Last administered on 02/19/21at 14:15; Start 02/19/21 at 14:15; Stop 02/19/21 at 14:16; Status DC Heparin Sodium/ Sodium Chloride (HEPARIN for ARTERIAL LINE FLUSH) 1,000 unit 1X ONCE IART Last administered on 02/19/21at 14:13; Start 02/19/21 at 14:15; Stop at 14:16; Status DC Midazolam HCl (Versed) 2 mg 1X ONCE IV Last administered on 02/19/21at 14:14; Start 02/19/21 at 14:15; Stop 02/19/21 at 14:16; Status DC Fentanyl Citrate (Fentanyl 2ml Vial) 100 mcg 1X ONCE IV Last administered on 02/19/21at 14:15; Start 02/19/21 at 14:15; Stop 02/19/21 at 14:16; Status DC Iodixanol (Visipaque 320) 65 ml 1X ONCE IART Last administered on 02/19/21at 14:13; Start 02/19/21 at 14:15; Stop 02/19/21 at 14:16; Status DC Lidocaine HCl (Xylocaine-Mpf 1% 2ml Vial) 2 ml 1X ONCE INJ Last administered on 02/19/21at 14:13; Start 02/19/21 at 14:15; Stop 02/19/21 at 14:16; Status DC Aspirin (Aspirin Chewable) 81 mg DAILY PO Last administered on 02/22/21at 08:41; Start 02/20/21 at 09:00 Buspirone HCl (Buspar) 20 mg BID PO Last administered on 02/22/21 08:39; Start 02/19/21 at 21:00 Docusate Sodium (Colace) 100 mg BID PO ; Start 02/19/21 at 21:00 Atorvastatin Calcium (Lipitor) 80 mg QHS PO Last administered on 02/21/21at 19:27; Start 02/19/21 at 21:00 Fluoxetine HCl (PROzac) 80 mg DAILY PO Last administered on 02/22/21at 08:38; Start 02/20/21 at 09:00 Quetiapine Fumarate (SEROquel) 50 mg BID92 PO Last administered on 02/22/21 08:39; Start 02/20/21 at 15:00 Quetiapine Fumarate (SEROquel) 200 mg QHS PO Last administered on 02/21/21 19:26; Start 02/19/21 at 21:00 Trazodone HCl (Desyrel) 150 mg QHS PO Last administered on 02/21/21at 19:27; Start 02/19/21 at 21:00 Clonazepam (KlonoPIN) 1 mg PRN Q6HRS PRN PO ANXIETY / AGITATION Last administered on 02/22/21 08:41; Start 02/19/21 at 19:45 Ondansetron HCl (Zofran) 4 mg PRN Q6HRS PRN IVP NAUSEA/VOMITING Last administered on 02/20/21at 11:20; Start 02/20/21 at 11:15 Oxycodone HCl (Roxicodone) 5 mg PRN Q6HRS PRN PO MODERATE TO SEVERE PAIN Last administered on 02/21/21at 19:27; Start 02/20/21 at 11:15 Enoxaparin Sodium (Lovenox 40mg Syringe) 40 mg Q24H SQ Last administered on 02/21/21at 14:45; Start 02/21/21 at 15:00 Active Scripts Active Reported Trazodone Hcl 150 Mg Tablet 1 Tab PO QHS 30 Days Seroquel (Quetiapine Fumarate) 200 Mg Tablet 1 Tab PO QHS Seroquel (Quetiapine Fumarate) 50 Mg Tablet 50 Mg PO BID Fluoxetine Hcl 40 Mg Capsule 80 Mg PO DAILY Colace (Docusate Sodium) 100 Mg Capsule 1 Cap PO BID 30 Days Buspirone Hcl 10 Mg Tablet 20 Mg PO BID Atorvastatin Calcium 80 Mg Tablet 80 Mg PO QHS Aspirin 81 Mg Tab.chew 1 Tab PO DAILY Vitals/I & O Vital Sign - Last 24 Hours 02/21/21 02/21/21 02/21/21 02/21/21 15:00 19:25 19:27 19:57 Temp 97.6 97.1 97.6 97.1 Pulse 83 75 Resp 16 21 20 B/P (MAP) 103/52 (69) 93/43 (60) Pulse Ox 95 95 95 O2 Delivery Nasal Cannula Nasal Cannula Nasal Cannula O2 Flow Rate 2.0 2.0 2.0 02/21/21 02/21/21 02/21/21 02/22/21 20:00 23:10 23:14 03:15 Temp 97.4 97.7 97.4 97.7 Pulse 66 70 Resp 20 18 B/P (MAP) 84/46 (59) 95/55 (68) 120/52 (74) Pulse Ox 94 95 O2 Delivery Nasal Cannula Nasal Cannula Nasal Cannula O2 Flow Rate 2.0 2.0 2.0 02/22/21 02/22/21 06:04 08:10 Temp 97.4 97.4 Pulse 85 Resp 18 B/P (MAP) 100/53 (69) Pulse Ox 94 O2 Delivery Nasal Cannula Nasal Cannula O2 Flow Rate 2.0 2.0 Intake and Output 02/21/21 02/21/21 02/22/21 15:00 23:00 07:00 Intake Total 280 ml 180 ml 440 ml Balance 280 ml 180 ml 440 ml Justifications for Admission Other Justification WESLEY IYER MD Feb 22, 2021 14:23
[2021-02-22] MEDS: ENOXAPARIN 40 MG/0.4 ML SYRINGE. SQ SCH (14:39)
[2021-02-22 15:00] VITALS: BP 104/49
[2021-02-22] MEDS ORDERED: ONDANSETRON ODT 4 MG TAB.RAPDIS. PO ONE (17:30)
[2021-02-22] MEDS ORDERED: DOCUSATE SODIUM 100 MG CAPSULE. PO PRN (17:45)
[2021-02-22 19:29] VITALS: BP 104/48
[2021-02-22] MEDS: ATORVASTATIN CALCIUM 40 MG TABLET. PO SCH (20:00)
[2021-02-22] MEDS: traZODone 50 MG TABLET. PO SCH (20:00)
[2021-02-22] MEDS: QUEtiapine 100 MG TABLET. PO SCH (20:00)
[2021-02-22] MEDS ORDERED: DOCUSATE SODIUM 100 MG CAPSULE. PO ONE (20:00)
[2021-02-22 22:28] VITALS: BP 101/58
[2021-02-23 02:58] VITALS: BP 99/57
[2021-02-23 07:00] VITALS: BP 107/75
[2021-02-23 07:32] LABS: HEMATOCRIT 36.6 % (36.0-47.0); HEMOGLOBIN 12.4 g/dL (12.0-15.5); RED BLOOD COUNT 4.05 x10^6/uL (3.50-5.40); RED CELL DISTRIBUTION WIDTH 15.1 % (11.5-14.5); WHITE BLOOD COUNT 4.4 x10^3/uL (4.0-11.0)
[2021-02-23 07:52] LABS: ALBUMIN 3.1 g/dL (3.4-5.0); ALBUMIN/GLOBULIN RATIO 0.8 (1.0-1.7); CALCIUM 8.8 mg/dL (8.5-10.1); GFR 58.5; POTASSIUM 3.8 mmol/L (3.5-5.1); TOTAL BILIRUBIN 0.5 mg/dL (0.2-1.0); TOTAL PROTEIN 6.8 g/dL (6.4-8.2)
[2021-02-23] MEDS: DOCUSATE SODIUM 100 MG CAPSULE. PO SCH ×2 (08:33→19:23)
[2021-02-23] MEDS: busPIRone 10 MG TABLET. PO SCH ×2 (08:34→19:23)
[2021-02-23] MEDS: QUEtiapine 25 MG TABLET. PO SCH ×2 (08:34→14:03)
[2021-02-23] MEDS: FLUoxetine HCL 20 MG CAPSULE PO SCH (08:34)
[2021-02-23] MEDS: ASPIRIN CHEWABLE 81 MG TABLET. PO SCH (08:34)
[2021-02-23] MEDS: clonazePAM 0.5 MG TABLET PO PRN (08:39)
--- NOTE | 2021-02-23 10:42 | NUR ---
SS following up with discharge planning. SS reviewed pt chart and discussed with pt RN. Pt is currently requiring oxygen at two liters nasal canula. Pt has no home oxygen. COVID19 negative. PT/OT recommended acute rehabilitation. SS met with pt to discuss discharge planning and acute rehabilitation. Pt agreeable to acute rehabilitation and requested referral to [facility], ; fax [phone]. SS phoned and faxed referral and discharge orders as requested. SS will continue to follow for discharge planning. Addendum: 02/23/21 at 1458 by LUCIANO BLACK SS Pt accepted at [facility] pending insurance approval.
[2021-02-23 11:00] VITALS: BP 93/46
--- NOTE | 2021-02-23 11:04 | PN ---
DATE: 02/23/2021 SUBJECTIVE: The patient is resting, slightly propped up in bed, in no apparent respiratory distress. She continued to complain of generalized weakness and shortness of breath. She also requires 2 liters of oxygen and apparently according to the rn social services, she can only go to a rehab center and therefore she is submitting her records to [facility] as well as [facility]. PHYSICAL EXAMINATION: GENERAL: When I saw her this afternoon, she looked well and was clearly in no apparent respiratory distress. No pallor, jaundice, cyanosis or thyromegaly. No jugular venous distention. No lower limb edema. VITAL SIGNS: Her heart rate was 72, blood pressure was 107/75, temperature 97.5, respiratory rate was 16 and oxygen saturation was 96% on 2 liters of oxygen. HEAD, EYES, EARS, NOSE, AND THROAT: Normocephalic, atraumatic. NECK: Supple. HEART: Showed normal first and second heart sounds, no gallop, rub or murmur. CHEST: Clear to auscultation, no crepitation or rhonchi. ABDOMEN: Slightly distended, soft, nontender. NEUROLOGIC: She is grossly intact. Her intake was 900, no output was recorded. LABORATORY DATA: This morning showed white cell count of 4400, hemoglobin 12, hematocrit 36, MCV 90 and platelet count of 156,000. Serum sodium 141, potassium 3.8, chloride 104, bicarbonate 33, anion gap of 4, BUN 9, creatinine 1, estimated GFR was 58 mL per minute. Her glucose was 73, calcium was 8.8. Total bilirubin, AST, ALT were normal. Alkaline phosphatase slightly elevated. Total protein 6.8, albumin was 3.1. ASSESSMENT: 1. This is a 50-year-old female patient who was admitted with chest pain with no obvious explanation revealed that her CT angio of the chest was unremarkable and her left heart catheterization revealed no significant lesions and required no intervention. 2. Coronary artery disease, status post percutaneous coronary intervention with stent deployment in 2017. 3. Hypertension. 4. Hyperlipidemia. 5. Anxiety and depression. 6. Hypoxemia; however, CT angio of the chest was unremarkable. She did 6-minute walk and it showed that her oxygen saturation was down to 87% on room air. At rest, she requires 3 liters of oxygen by nasal cannula to keep her oxygen saturation above 90. We probably consulted the rn social services and she will be discharged to a rehab center when she is accepted there. YOANNA DR: Kristina TID: [id number]
[2021-02-23 15:00] VITALS: BP 91/43
[2021-02-23] MEDS: ENOXAPARIN 40 MG/0.4 ML SYRINGE. SQ SCH (15:45)
[2021-02-23] MEDS: QUEtiapine 100 MG TABLET. PO SCH (19:23)
[2021-02-23] MEDS: ATORVASTATIN CALCIUM 40 MG TABLET. PO SCH (19:23)
[2021-02-23] MEDS: traZODone 50 MG TABLET. PO SCH (19:24)
[2021-02-23] MEDS: ONDANSETRON PF 4 MG/2 ML VIAL. IVP PRN (19:28)
[2021-02-23 19:35] VITALS: BP 101/45
[2021-02-23 22:54] VITALS: BP 89/37
[2021-02-24] VITALS (7 sets, daily range): BP systolic 100–116; BP diastolic 48–58
[2021-02-24] MEDS: FLUoxetine HCL 20 MG CAPSULE PO SCH (08:26)
[2021-02-24] MEDS: busPIRone 10 MG TABLET. PO SCH ×2 (08:26→20:31)
[2021-02-24] MEDS: DOCUSATE SODIUM 100 MG CAPSULE. PO SCH ×2 (08:26→20:31)
[2021-02-24] MEDS: ASPIRIN CHEWABLE 81 MG TABLET. PO SCH (08:26)
[2021-02-24] MEDS: QUEtiapine 25 MG TABLET. PO SCH ×2 (08:26→16:48)
[2021-02-24] MEDS: clonazePAM 0.5 MG TABLET PO PRN ×2 (08:31→20:31)
--- NOTE | 2021-02-24 09:47 | PN ---
DATE: 02/24/2021 SUBJECTIVE: The patient is resting, slightly propped up in bed, in no apparent distress. She continued to complain of generalized weakness, cough, shortness of breath on exertion. We did 6-minute walk and she required 2 liters of oxygen at rest and on exertion. The physical therapy has evaluated her and recommended long term facility. She was referred to [facility] as well as [facility]. We are waiting for the authorization by her insurance for her to be discharged. PHYSICAL EXAMINATION: GENERAL: However, when I saw her this morning, she looked well and was clearly in no apparent respiratory distress. There was no pallor, jaundice, cyanosis or thyromegaly. No jugular venous distention. No lower limb edema. VITAL SIGNS: Her heart rate was 67, blood pressure was 100/51, temperature was 98.1, respiratory rate was 18, and oxygen saturation was 94% on 2 liters of oxygen. HEAD, EYES, EARS, NOSE, AND THROAT: Normocephalic, atraumatic. NECK: Supple. HEART: Showed normal first and second heart sounds. No gallop, rub or murmur. CHEST: Clear to auscultation. No crepitation or rhonchi. ABDOMEN: Distended, soft, nontender. NEUROLOGIC: She was grossly intact. Her intake is 1255. No output was recorded. LABORATORY DATA: As of yesterday, her white cell count, hemoglobin, hematocrit, platelets are all normal. Her chemistry was unremarkable. ASSESSMENT: 1. This is a 50-year-old female patient who was admitted with chest pain with no obvious explanation revealed as her CT angio of the chest was negative and left heart catheterization showed no significant lesion and required no intervention. 2. Coronary artery disease status post percutaneous coronary intervention with stent deployment in 2017. 3. Hypertension. 4. Hyperlipidemia. 5. Anxiety and depression. 6. Acute hypoxic respiratory failure, probably due to her chronic obstructive pulmonary disease. She did have a 6-minute walk and requires 2 liters of oxygen by nasal cannula at rest and exertion. The patient is scheduled to be discharged to rehab hospital once the insurance has approved it. GAGANDEEP DR: Kristina TID: [id number]
--- NOTE | 2021-02-24 12:01 | PDOC ---
CARDIOLOGY PROGRESS NOTE SUBJECTIVE: Late entry for 02/23/2021 No acute events overnight. Patient still requiring oxygen therapy. OBJECTIVE: Vital Signs/I&O: Vital Signs Date Time Temp Pulse Resp B/P (MAP) Pulse Ox O2 Delivery O2 Flow Rate FiO2 02/24/21 08:00 Nasal Cannula 2.0 02/24/21 07:00 98.1 67 18 100/51 (67) 94 98.1 I & O 02/23/21 02/23/21 02/24/21 15:00 23:00 07:00 Intake Total 620 ml 0 ml Balance 620 ml 0 ml Objective: GEN.: No apparent distress. Alert and oriented. HEENT: Head is normocephalic, atraumatic NECK: Supple. LUNGS: Decreased breath sounds bilaterally. HEART: RRR, S1, S2 present. Peripheral pulses intact ABDOMEN: Soft, nontender. Positive bowel sounds. EXTREMITIES: Without any cyanosis. NEUROLOGIC: Normal speech, normal tone PSYCHIATRIC: Normal affect, normal mood. SKIN: No ulcerations CURRENT MEDICATIONS: Medications reviewed. DIAGNOSTIC TESTING: Labs reviewed. ASSESSMENT: 1. Coronary artery disease 2. COPD PLAN: 1. Continue aspirin and statin therapies. Patient's blood pressures fairly well controlled. She has no significant new coronary artery disease requiring intervention. Supportive care. Follow-up with Dr. Ivy at [facility] for her routine cardiac care. Justicifation of Admission Dx: Justifications for Admission: Justification of Admission Dx: No SANTA CABRERA MD Feb 24, 2021 12:01
--- NOTE | 2021-02-24 14:35 | NUR ---
SS following up with discharge planning. SS reviewed pt chart and discussed with pt RN. Pt is currently requiring oxygen at two liters nasal canula. COVID19 negative. PT/OT recommended acute rehabilitation. Pt accepted at [facility], ; fax [phone]. Insurance authorization received. Bed available tomorrow. SS will continue to follow for discharge planning.
[2021-02-24] MEDS: ENOXAPARIN 40 MG/0.4 ML SYRINGE. SQ SCH (16:48)
[2021-02-24] MEDS: QUEtiapine 100 MG TABLET. PO SCH (20:31)
[2021-02-24] MEDS: traZODone 50 MG TABLET. PO SCH (20:31)
[2021-02-24] MEDS: ATORVASTATIN CALCIUM 40 MG TABLET. PO SCH (20:32)
[2021-02-25 03:10] VITALS: BP 95/54
[2021-02-25 07:00] VITALS: BP 101/67
[2021-02-25] MEDS: clonazePAM 0.5 MG TABLET PO PRN (08:50)
[2021-02-25] MEDS: FLUoxetine HCL 20 MG CAPSULE PO SCH (08:50)
[2021-02-25] MEDS: QUEtiapine 25 MG TABLET. PO SCH (08:50)
[2021-02-25] MEDS: ASPIRIN CHEWABLE 81 MG TABLET. PO SCH (08:50)
[2021-02-25] MEDS: busPIRone 10 MG TABLET. PO SCH (08:50)
[2021-02-25] MEDS: DOCUSATE SODIUM 100 MG CAPSULE. PO SCH ×2 (08:51→08:54)
--- NOTE | 2021-02-25 09:46 | SNU/HH DC ---
DISCHARGE ORDERS DISCHARGE INFORMATION: DISCHARGE DATE: Feb 25, 2021 FINAL DIAGNOSIS acute hypoxic respiratory failure cad s/p pci and stent deployment CONDITION ON DISCHARGE: Stable CODE STATUS: Code Status: Full LTAC: ADMIT TO LTAC: Yes POST DISCHARGE ORDERS: ACTIVITY ORDERS: Activity as tolerated WEIGHT BEARING STATUS: No restrictions DIET AFTER DISCHARGE: Cardiac TREATMENT/EQUIPMENT ORDERS: Physical Therapy For: Evalulation/Treatment Occupational Therapy For: Evaluation/Treatment DISCHARGE MEDICATIONS: Home Meds Reported Medications Trazodone Hcl (TRAZODONE HCL) 150 Mg Tablet, 1 TAB PO QHS for sleep for 30 Days, #30 TAB 0 Refills 02/19/21 Quetiapine Fumarate (SEROQUEL) 200 Mg Tablet, 1 TAB PO QHS for antipsychotic, #30 TAB 1 Refill 02/19/21 Quetiapine Fumarate (SEROQUEL) 50 Mg Tablet, 50 MG PO BID for antipsychotic, TAB 02/19/21 Fluoxetine Hcl (FLUOXETINE HCL) 40 Mg Capsule, 80 MG PO DAILY for antidepressant, CAP 02/19/21 Docusate Sodium (COLACE) 100 Mg Capsule, 1 CAP PO BID for constipation for 30 Days, #60 CAP 0 Refills 02/19/21 Buspirone Hcl (BUSPIRONE HCL) 10 Mg Tablet, 20 MG PO BID for anxiety, TAB 02/19/21 Atorvastatin Calcium (Atorvastatin Calcium) 80 Mg Tablet, 80 MG PO QHS for FOR HIGH CHOLESTEROL, TAB 02/19/21 Aspirin (ASPIRIN) 81 Mg Tab.chew, 1 TAB PO DAILY for blood thinner, #30 TAB 3 Refills 02/19/21 ANTON BURROWS MD Feb 25, 2021 09:46
[2021-02-25 11:00] VITALS: BP 94/51
--- NOTE | 2021-02-25 11:22 | NUR ---
SS following up with discharge planning. SS reviewed pt chart and discussed with pt RN. Pt is currently requiring oxygen at two liters nasal canula. COVID19 negative. PT/OT recommended acute rehabilitation. Pt accepted at [facility], ; fax [phone]. Insurance authorization received. Discharge orders sent to [facility]. Bed available. Pt will discharge today and go to [facility] at 1300. [facility] to provide transportation. Pt and pt's RN notified.
--- NOTE | 2021-02-25 13:30 | NUR ---
Discharge Note: [facility] Discharge instructions and discharge home medications reviewed with Other facility and a copy given. All questions have been answered and understanding verbalized. All belongings taken with patient at discharge. Home medications returned to patient from Med room. The following instructions and handouts were given: Radial site care, Home oxygen use Discontinued lines and drains: Peripheral IV intact. Patient discharged to Rehab Facility with Self via Wheelchair
== END 2021-02-25 13:40 | DRG 286 ==
LOC: 6 SOUTH 10:49
PROVIDERS: ADMIT Internal Medicine; ATTEND Internal Medicine
PROC: 4A023N7 Measurement of Cardiac Sampling and Pressure, Left Heart, Percutaneous Approach (ICD-10-PCS; principal; 2021-02-19)
PROC: B211YZZ Fluoroscopy of Multiple Coronary Arteries using Other Contrast (ICD-10-PCS; 2021-02-19)
DX: I25.10 Atherosclerotic heart disease of native coronary artery without angina pectoris (principal); J96.01 Acute respiratory failure with hypoxia; J98.11 Atelectasis; E78.5 Hyperlipidemia, unspecified; F32.9 Major depressive disorder, single episode, unspecified; F41.9 Anxiety disorder, unspecified; I10 Essential (primary) hypertension; I25.2 Old myocardial infarction; J44.9 Chronic obstructive pulmonary disease, unspecified; Q27.8 Other specified congenital malformations of peripheral vascular system; Z79.82 Long term (current) use of aspirin; Z82.49 Family history of ischemic heart disease and other diseases of the circulatory system; Z83.3 Family history of diabetes mellitus; Z87.891 Personal history of nicotine dependence; Z95.5 Presence of coronary angioplasty implant and graft; K21.9 Gastro-esophageal reflux disease without esophagitis; Z20.822 Contact with and (suspected) exposure to COVID-19; Z90.49 Acquired absence of other specified parts of digestive tract
CPT/HCPCS: 36415; 71045; 76937; 80053; 80061; 84484; 85027; 93306; 93458; 94618; 99152; 99153; C1894; J1644; J1650; J2250; J2405; J3010; J3490; Q9967; 97110-GP; 97116-GP; 97530-GP; 97535-GO; G0378